=== PATIENT | male | born 1975 | race Caucasian/White ===

== ENCOUNTER 2017-05-13 07:51 | Observation (INO) | payer OTHER ==
[~2017-05-13] VITALS: Ht 188 cm; Wt 113.0 kg
[2017-05-13] VITALS (7 sets, daily range): BP systolic 102–142; BP diastolic 62–87; PULSE 80–95; TEMP 98.3–98.4
[~2017-05-13 07:51] MED LIST: AMOXICILLIN 50500 MG PO; AMOXICILLIN 8751 TAB PO; CLONAZEPAM PO; EFFEXOR-XR75 MG PO; INDERAL; LORTAB 10/500 51 TAB PO; PERCOCET 325 MG1 TA2 PO; PRAZOSIN
[2017-05-13] MEDS ORDERED: NEURONTIN300 MG/CAP PO (08:17)
[2017-05-13 08:34] LABS: BASO # 0.1 (0.0-0.2); BASO % 0.5 % (0.0-2.0); EOS # 0.1 (0.0-0.7); EOS % 0.9 % (0-4.0); GRAN # 12.1 (1.4-6.5); GRAN % 80.4 % (42.2-75.2); HEMATOCRIT 40.7 % (42.0-52.0); LYMPH # 1.5 (1.2-3.4); LYMPH % 9.7 % (20.0-51.0); MEAN CELL VOLUME 93 fl (80.0-100.0); MEAN CORPUSCULAR HEMOGLOBIN 32 pg (27.0-31.0); MEAN CORPUSCULAR HGB CONC 34 g/dl (33.0-37.0); MEAN PLATELET VOLUME 9.3 fl (7.4-10.4); MONO # 1.2 (0.1-0.6); MONO % 8.1 % (1.7-9.3); PLATELET COUNT 248 K/mm3 (130-400); RED BLOOD COUNT 4.38 M/mm3 (4.20-5.60)
[2017-05-13 08:46] LABS: ADJUSTED CALCIUM 9.2 mg/dL (8.4-10.2); ALBUMIN 4.4 gm/dL (3.5-5.0); BILIRUBIN,TOTAL 0.9 mg/dL (0.0-1.0); C-REACTIVE PROTEIN 3.6 mg/dL (0.0-0.9); CALCIUM 9.5 mg/dL (8.4-10.2); CREATININE, serum 0.83 mg/dL (0.66-1.25); POTASSIUM 3.8 mmol/L (3.4-5.0); TOTAL PROTEIN 7.4 gm/dL (6.4-8.2)
[2017-05-13] MEDS ORDERED: AMOXICILLIN/CLA1 TA1 PO (16:12)
== END 2017-05-13 16:00 | disposition home or self-care (01) ==
LOC: COL.ER 07:51 → SURG 09:45
PROVIDERS: Emergency Medicine
DX: K61.1 Rectal abscess (principal); I10 Essential (primary) hypertension; F43.10 Post-traumatic stress disorder, unspecified; I45.10 Unspecified right bundle-branch block; G93.0 Cerebral cysts; F17.200 Nicotine dependence, unspecified, uncomplicated; Z88.3 Allergy status to other anti-infective agents; G47.30 Sleep apnea, unspecified; K21.9 Gastro-esophageal reflux disease without esophagitis; G43.909 Migraine, unspecified, not intractable, without status migrainosus; M19.90 Unspecified osteoarthritis, unspecified site; R20.2 Paresthesia of skin
CPT/HCPCS: J1100; J1170; J1885; J2250; J2405; J2543; J2704; J3010; J7030; J7050; Q9967

== ENCOUNTER 2018-06-28 05:27 | Day surgery (SDC) | payer OTHER ==
[~2018-06-28] VITALS: Ht 188 cm; Wt 104.5 kg
[2018-06-28] VITALS (7 sets, daily range): BP systolic 91–130; BP diastolic 46–79; PULSE 77–84; TEMP 97.5–98.8
[~2018-06-28 05:27] MED LIST changes: +AMOXICILLIN/CLA1 TA1 PO; -EFFEXOR-XR75 MG PO; +NEURONTIN300 MG/CAP PO; +VENLAFAXINE225 MG PO
[2018-06-28] MEDS ORDERED: MULTIPLE VITAMI1 CAP PO (06:40)
[2018-06-28] MEDS ORDERED: VITAMIN D 1001000 IU PO (06:41)
[2018-06-28 07:53] LABS: BASO % 0.3 % (0.0-2.0); EOS # 0.1 (0.0-0.7); EOS % 0.7 % (0-4.0); GRAN # 11.2 (1.4-6.5); GRAN % 77.8 % (42.2-75.2); HEMATOCRIT 42.2 % (42.0-52.0); HEMOGLOBIN 14.6 g/dl (13.5-18.0); LYMPH # 1.7 (1.2-3.4); LYMPH % 11.9 % (20.0-51.0); MEAN CELL VOLUME 92 fl (80.0-100.0); MEAN CORPUSCULAR HEMOGLOBIN 32 pg (27.0-31.0); MEAN CORPUSCULAR HGB CONC 35 g/dl (33.0-37.0); MEAN PLATELET VOLUME 9.6 fl (7.4-10.4); MONO # 1.3 (0.1-0.6); PLATELET COUNT 241 K/mm3 (130-400); RED BLOOD COUNT 4.58 M/mm3 (4.20-5.60); REDCELL DISTRIBUTION WIDTH-CV 11.9 % (11.5-14.5)
[2018-06-28 08:04] LABS: ALBUMIN 4.3 gm/dL (3.5-5.0); BILIRUBIN,TOTAL 0.8 mg/dL (0.0-1.0); CALCIUM 9.4 mg/dL (8.4-10.2); CREATININE, serum 0.79 mg/dL (0.66-1.25); POTASSIUM 3.8 mmol/L (3.4-5.0); TOTAL PROTEIN 7.4 gm/dL (6.4-8.2)
--- NOTE | 2018-06-28 11:17 | NUR ---
PATIENT ARRIVED TO ROOM 342 VIA CART FROM THE PACU. PATIENT IS A&O. POST-OP VSS. BOWEL SOUNDS ACTIVE ALL FOUR QUADRANTS. PATIENT TOLERATING WATER AND CLEAR LIQUIDS WITHOUT ANY COMPLAINTS OF N/V. POSITIVE PEDAL PULSES EQUAL BILATERALLY. IV FLUIDS INFUSING TO LEFT HAND IV VIA GRAVITY FLOW TUBING. ABSCESS PACKING, GAUZE & MESH UNDERWEAR IN PLACE. LUNCH TRAY ORDERED. CALL LIGHT WITHIN REACH. PATIENT DENIES ANY OTHER NEEDS AT THIS TIME.
--- NOTE | 2018-06-28 14:45 | NUR ---
PATIENT'S LEFT HAND INT DC'D PER PENDING DISCHARGE. PATIENT TOLERATED WELL. DISCHARGE INSTRUCTIONS REVIEWED WITH PATIENT. ALL QUESTIONS ANSWERED. PATIENT AMBULATED TO PERSONAL VEHICLE WITH SURGICAL STAFF. PATIENT DISCHARGED.
== END 2018-06-28 14:45 | disposition home or self-care (01) ==
LOC: COL.ER 05:27 → SDCO 09:12 → SURG 11:20 → SDCO 14:45
PROVIDERS: Emergency Medicine
DX: K61.1 Rectal abscess (principal); F17.210 Nicotine dependence, cigarettes, uncomplicated
CPT/HCPCS: OP; J2250; J2270; J2405; J2704; J3010; J7030; Q9967